=== PATIENT | male | born 1985 | race Caucasian/White ===

== ENCOUNTER 2020-10-15 17:36 | Emergency (ER) | payer OTHER ==
[2020-10-15] MEDS ORDERED: Lidocaine 1% 10 ML MDV INJECT ONE (18:40)
--- NOTE | 2020-10-15 18:40 | EDM.PDOC ---
ED HPI GENERAL MEDICAL PROBLEM - General Chief Complaint: Laceration Stated Complaint: R RIN FINGER LAC/FINGER TIP CUT OFF Time Seen by Provider: 10/15/20 18:35 Source of Information: Reports: Patient History Limitations: Reports: No Limitations - History of Present Illness INITIAL COMMENTS - FREE TEXT/NARRATIVE: 35-year-old female presents to the emergency department with injury to his right ring finger. The patient states that approximately 1 hour ago he was at work and a tailgate of a pickup truck slammed onto his right ring finger. Right Finger-Ring Pain Score (Numeric/FACES): 10 - Related Data Allergies Allergy/AdvReac Type Severity Reaction Status Date / Time No Known Allergies Allergy Verified 10/15/20 18:24 Home Meds: Home Meds Amoxicillin/Potassium Clav [Augmentin 875-125 Tablet] 1 each PO BID #14 tablet 10/15/20 [Rx] oxyCODONE HCl/Acetaminophen [Percocet 5-325 mg Tablet] 1 each PO Q6H PRN #10 tablet 10/15/20 [Rx] Past Medical History - Past Health History Medical/Surgical History: Denies Medical/Surgical History Social & Family History - Tobacco Use Tobacco Use Status *Q: Never Tobacco User Second Hand Smoke Exposure: No - Caffeine Use Caffeine Use: Reports: Coffee - Recreational Drug Use Recreational Drug Use: No ED ROS GENERAL - Review of Systems Review Of Systems: Comprehensive ROS is negative, except as noted in HPI. ED EXAM, SKIN/RASH Exam: See Below Exam Limited By: No Limitations General Appearance: Alert, WD/WN, Mild Distress Ears: Normal External Exam, Hearing Grossly Normal Nose: Normal Inspection Throat/Mouth: Normal Inspection, Normal Voice, No Airway Compromise Head: Atraumatic, Normocephalic Neck: Normal Inspection Respiratory/Chest: No Respiratory Distress, No Accessory Muscle Use Cardiovascular: Normal Peripheral Pulses, Regular Rate, Rhythm Peripheral Pulses: 2+: Radial (L), Radial (R) GI/Abdominal: No Distention (Male) Exam: Deferred Rectal (Males) Exam: Deferred Back Exam: Normal Inspection Extremities: Normal Range of Motion, Normal Capillary Refill. No: Normal Inspection (Avulsion type injury noted to right ring finger ventral aspect at the fat pad), No Pedal Edema Neurological: Alert, Oriented, Normal Cognition Psychiatric: Normal Affect, Normal Mood Skin: Warm, Dry, No Rash, Wound/Incision (avulsion noted to distal right ring finger; bone is exposed. ). No: Intact Location, Skin: Upper Extremity, Right Associated features: Tenderness Lymphatic: No Adenopathy ED SKIN PROCEDURES - Laceration/Wound Repair Right Digit - 4th (Ring) Appearance: Subcutaneous Anesthetic Type: Digital Local Anesthesia - Lidocaine (Xylocaine): 1% Plain Local Anesthetic Volume: 2cc Course - Vital Signs Text/Narrative:: Trauma to right ring finger that occurred about 1 hour prior to arrival. The patient was at work today when gait of the pickup truck slammed onto his right ring finger. Upon assessment the entire ventral pad of his right ring finger is gone and there is bone exposed. The fingernail is still intact however. I have ordered an x-ray of this and will order lidocaine to do a distal block of his ring finger. The patient likely will need to be transported to [place] due to an open fracture. Last Recorded V/S: Last Vital Signs Temp 98.1 F 10/15/20 18:20 Pulse 78 10/15/20 18:20 Resp 16 10/15/20 18:20 BP 160/95 H 10/15/20 18:20 Pulse Ox 98 10/15/20 18:20 - Orders/Labs/Meds Orders: Active Orders 24 hr Category Date Time Status Fingers Fourth Digit Rt F8 [CR] Stat Exams 10/15/20 18:37 Taken Labs: Laboratory Tests 10/15/20 Range/Units 19:33 SARS-CoV-2 RNA ([facility]UCIA) Negative (NEGATIVE) Meds: Medications Discontinued Medications Generic Name Dose Route Start Last Admin Trade Name Maeve PRN Reason Stop Dose Admin Cefazolin Sodium/Dextrose 1 gm 50 mls @ 100 mls/hr 10/15/20 19:46 10/15/20 20:32 / Premix IV 10/15/20 20:15 100 mls/hr ONETIME ONE Administration Lidocaine HCl 10 ml 10/15/20 18:40 10/15/20 20:31 Lidocaine 1% 10 Ml Mdv INJECT 10/15/20 18:41 10 ml ONETIME ONE Administration - Re-Assessments/Exams Free Text/Narrative Re-Assessment/Exam: 10/15/20 20:[address] Walker, orthopedist mainframe consultant for [facility] in [place]. He did review the patient's x-rays. Request that we start Ancef 1 g IV. Put a dressing on the patient's wound and allow him to be discharged home. He requests that we give him a prescription for Augmentin to take orally. He will need to be n.p.o. after midnight tonight as he likely will go to surgery tomorrow afternoon. Dr. Walker states he will contact the patient first thing in the morning and he did receive the patient's contact information. 10/15/20 20:39 X-ray reveals a fracture noted as distal ring finger. Departure - Departure Time of Disposition: 20:39 Disposition: Home, Self-Care 01 Condition: Good Clinical Impression: Open fracture of phalanx of ring finger Qualifiers: Encounter type: initial encounter Phalanx: distal Fracture alignment: nond isplaced Laterality: right Qualified Code(s): S62.664B - Nondisplaced fracture of distal phalanx of right ring finger, initial encounter for open fracture - Discharge Information Prescriptions: Amoxicillin/Potassium Clav [Augmentin 875-125 Tablet] 1 each PO BID #14 tablet oxyCODONE HCl/Acetaminophen [Percocet 5-325 mg Tablet] 1 each PO Q6H PRN #10 tablet PRN Reason: Pain (Moderate 4-6) Referrals: PCP,Not In Area [Primary Care Provider] - Forms: ED Department Discharge Additional Instructions: You were seen in the emergency department today with trauma to right ring finger. You did have an open fracture of that finger. Distal block was completed to numb up the joint and the wound was cleaned and a dressing was placed. You did receive IV antibiotics while in the emergency department. And pain medication. Dr. Walker, the orthopedic surgeon at [facility] in [place] will be giving you a phone call first thing in the morning to schedule a time for surgery. You eat or drink anything after midnight tonight in order to have surgery tomorrow. Should you need to take a pain pill just take 1 with a small sip of water. Prior to then you can take a pain pill every 4 hours as needed for more severe pain. Also sent with a prescription for antibiotics. You will need to take 1 tab first thing in the morning. Sepsis Event Note (ED) - Evaluation Sepsis Screening Result: No Definite Risk - Focused Exam Vital Signs: Vital Signs Temp Pulse Resp BP Pulse Ox 10/15/20 18:20 98.1 F 78 16 160/95 H 98 - My Orders Last 24 Hours: My Active Orders 10/15/20 18:37 Fingers Fourth Digit Rt F8 [CR] Stat - Assessment/Plan Last 24 Hours: My Active Orders 10/15/20 18:37 Fingers Fourth Digit Rt F8 [CR] Stat
[2020-10-15] MEDS ORDERED: ceFAZolin 1 GM in Premix Bag 1 BAG IV ONE (19:46)
[2020-10-15] MEDS ORDERED: Acetaminophen/oxyCODONE 325-5 MG Tab PO ONE (20:45)
[2020-10-15] MEDS ORDERED: Diphtheria,Pertussis(Acell),Tetanus Vaccine 0.5 ML Syringe IM ONE (20:45)
--- NOTE | 2020-10-16 08:37 | CR ---
Fourth finger exam: 3 views centered to the right fourth finger were obtained. Comparison: No previous study. Fracture and amputation is seen within a portion of the tuft of the distal right fourth finger as well as soft tissue injury. Very minimal residual bone fragment is seen. No proximal abnormality is noted. Other visualized portions of the finger appear within normal limits. Impression: 1. Distal right fourth finger injury as noted above. Diagnostic code #3 MTDD
== END 2020-10-15 21:25 | disposition home or self-care (01) ==
LOC: JD.ED 17:36
DX: S62.664B Nondisplaced fracture of distal phalanx of right ring finger, initial encounter for open fracture (principal); Z20.822 Contact with and (suspected) exposure to COVID-19; W23.0XXA Caught, crushed, jammed, or pinched between moving objects, initial encounter; Y99.0 Civilian activity done for income or pay
CPT/HCPCS: 64450; 73140; 87635; 90471; 90715; 96374; 99283; A9270; J0690; 99284; U0002